=== PATIENT | male | born 1980 | race Caucasian/White ===

== ENCOUNTER 2019-03-20 08:48 | Emergency (ER) | payer SELFPAY ==
[2019-03-20] MEDS ORDERED: Tetracaine HCl/PF 0.5% 4 ML Bottle EYELF ONE (09:30)
--- NOTE | 2019-03-20 09:56 | EDM.PDOC ---
ED HPI GENERAL MEDICAL PROBLEM - General Chief Complaint: ENT Problem Stated Complaint: left eye injury Time Seen by Provider: 03/20/19 09:51 History Limitations: Reports: No Limitations - History of Present Illness INITIAL COMMENTS - FREE TEXT/NARRATIVE: Patient is a 38-year-old gentleman who is seen with chief complaint of plain of left eye irritation patient states Thursday he might have gotten a piece of metal in his left eye at this time I was examining with fluorescein and Wood's lamp revealed a foreign body at 4:00 on the pupil Onset: Gradual Duration: Day(s): Location: Reports: Face (Left eye foreign body) Quality: Reports: Sharp Severity: Moderate Improves with: Reports: Medication Worsens with: Reports: None Context: Reports: Trauma Associated Symptoms: Reports: No Other Symptoms 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 Left Eye Pain Score (Numeric/FACES): 6 - Related Data Allergies Allergy/AdvReac Type Severity Reaction Status Date / Time No Known Allergies Allergy Verified 03/20/19 08:50 Home Meds: Home Meds Ofloxacin [Ocuflox 0.3% Ophth Soln] 1 drop EYELF QID 03/20/19 [History] Past Medical History HEENT History: Reports: Other (See Below) - Past Surgical History HEENT Surgical History: Reports: Eye Surgery Other HEENT Surgeries/Procedures: Right eye foriegn body removal ED ROS GENERAL - Review of Systems Review Of Systems: See Below Constitutional: Reports: No Symptoms HEENT: Reports: Eye Pain Respiratory: Reports: No Symptoms Cardiovascular: Reports: No Symptoms Endocrine: Reports: No Symptoms GI/Abdominal: Reports: No Symptoms : Reports: No Symptoms Musculoskeletal: Reports: No Symptoms Skin: Reports: No Symptoms Neurological: Reports: No Symptoms Psychiatric: Reports: No Symptoms ED EXAM GENERAL W FULL EYE - Physical Exam Exam: See Below Exam Limited By: No Limitations Conjunctiva & Sclera: Left: Injected (Foreign body left eye 4:00) Cornea Exam: Left: Foreign Body (Form body left eye 4:00) Pupils: Normal Accommodation Pupillary Size: Bilateral: 2 mm Ears: Normal External Exam, Normal Canal, Hearing Grossly Normal, Normal TMs Nose: Normal Inspection, Normal Mucosa, No Blood Throat/Mouth: Normal Inspection, Normal Lips, Normal Teeth, Normal Gums, Normal Oropharynx, Normal Voice, No Airway Compromise Head: Atraumatic, Normocephalic Respiratory/Chest: No Respiratory Distress, Lungs Clear, Normal Breath Sounds, No Accessory Muscle Use, Chest Non-Tender Cardiovascular: Normal Peripheral Pulses, Regular Rate, Rhythm, No Edema, No Gallop, No JVD, No Murmur, No Rub (Male) Exam: Deferred Rectal (Males) Exam: Deferred Back Exam: Normal Inspection, Full Range of Motion, NT Extremities: Normal Inspection, Normal Range of Motion, Non-Tender, Normal Capillary Refill, No Pedal Edema Neurological: Alert, Oriented, CN II-XII Intact, Normal Cognition, Normal Gait, Normal Reflexes, No Motor/Sensory Deficits Psychiatric: Normal Affect, Normal Mood Skin Exam: Warm, Dry, Intact, Normal Color, No Rash Lymphatic: No Adenopathy ED EYE w/ Add Procedure - Additional/Other Procedure(s) Other (Free Text) Procedure(s) [Text1]: Patient is a 38-year-old who was seen with chief complaint of left I irritation under direct vision I was unable to see any foreign bodies but with fluorescein we saw form body at 4:00 at this time we applied tetracaine to attempt to remove it patient was unable to tolerate the vision of of sharp object on the eye therefore I will refer him to optometry or ophthalmology on Thursday in the meantime we'll go ahead and apply Polysporin ointment and left eye patch for attempt to relieve pain Course - Vital Signs Last Recorded V/S: Last Vital Signs Temp 98.7 F 03/20/19 08:52 Pulse 136 H 03/20/19 08:52 Resp 20 03/20/19 08:52 BP 121/77 03/20/19 08:52 Pulse Ox 100 03/20/19 08:52 - Orders/Labs/Meds Meds: Medications Discontinued Medications Generic Name Dose Route Start Last Admin Trade Name Freq PRN Reason Stop Dose Admin Tetracaine HCl 1 ml 03/20/19 09:30 Tetracaine 0.5% Steri-Unit Elizabeth EYELF 03/20/19 09:31 ASDIRECTED ONE Departure - Departure Time of Disposition: 10:02 Disposition: DC/Tfer to [facility] Condition: Fair Clinical Impression: Foreign body of left eye Qualifiers: Encounter type: initial encounter Qualified Code(s): T15.92XA - Foreign body on external eye, part unspecified, left eye, initial encounter - Discharge Information *PRESCRIPTION DRUG MONITORING PROGRAM REVIEWED*: No *COPY OF PRESCRIPTION DRUG MONITORING REPORT IN PATIENT MARYCHUY: No Referrals: PCP,None [Primary Care Provider] - Care Plan Goals: Patient will be referred to ophthalmology or optometry for removal of foreign body Dr. Jones Rico in [place]
[2019-03-20] MEDS ORDERED: Bacitracin/Polymyxin B Ophth Oint 3.5 GM Tube ONE (09:59)
== END 2019-03-20 10:15 | disposition home or self-care (01) ==
LOC: LL.ED 08:48
DX: T15.92XA Foreign body on external eye, part unspecified, left eye, initial encounter (principal); X58.XXXA Exposure to other specified factors, initial encounter
CPT/HCPCS: 99283